=== PATIENT | female | born 1985 | race Hispanic/Latino ===

== ENCOUNTER 2020-04-25 18:22 | Emergency (ER) | payer BC ==
[2020-04-25] MEDS ORDERED: HYDROcodone/Acetaminophen 10/325 mg Tablet ONE (19:08)
[2020-04-25] MEDS ORDERED: Ondansetron ODT 4 MG TAB ONE (19:10)
== END 2020-04-25 19:35 | disposition home or self-care (01) ==
LOC: MADERS 18:22
DX: S82.62XA Displaced fracture of lateral malleolus of left fibula, initial encounter for closed fracture (principal); X50.0XXA Overexertion from strenuous movement or load, initial encounter
CPT/HCPCS: 29515; Q0162